=== PATIENT | female | born 1995 | race Caucasian/White ===

== ENCOUNTER 2017-01-31 06:31 | Emergency (ER) | payer BC ==
[~2017-01-31] VITALS: Ht 172.7 cm; Wt 94.7 kg
[~2017-01-31 06:31] MED LIST: DESO1TAB33 PO
[2017-01-31 06:35] VITALS: Ht 172.7 cm; Wt 94.7 kg
[2017-01-31] MEDS ORDERED: KETOROLAC TROMETHAMINE 60 MG/2 ML VIAL IM STA (06:58)
[2017-01-31] MEDS ORDERED: PROCHLORPERAZINE 5 MG/ML 2 ML VIAL IM ONE (07:00)
[2017-01-31] MEDS ORDERED: DiphenhydrAMINE HCL 50 MG/ML VIAL IV STA (07:03)
[2017-01-31] MEDS ORDERED: KETOROLAC TROMETHAMINE 30 MG/ML VIAL IV STA (07:03)
[2017-01-31] MEDS ORDERED: ONDANSETRON 8 MG/54 ML D5W IV STA (07:03)
[2017-01-31] MEDS ORDERED: PROCHLORPERAZINE 5 MG/ML 2 ML VIAL IV STA (07:03)
[2017-01-31] MEDS ORDERED: SODIUM CHLORIDE 0.9% 500ML 500 ML IV STA (07:08)
--- NOTE | 2017-01-31 07:52 | EMERGENCY ROOM VISIT NOTE ---
History Report prepared by [place]: America Hooper Under the Supervision of: Dr. Elias Hartley D.O. First contact with patient: 06:57 Chief Complaint: HEADACHE Stated Complaint: MIGRAINE,NAUSEA History of Present Illness The patient is a 21 year old female who presents to the Emergency Room with complaints of a constant headache beginning last night. Her pain is located in her temples bilaterally and in the back of her head. She is also experiencing nausea, vomiting, and photophobia. She rates her pain as an 8/10 in severity. The patient has a history of migraines and states that this feels similar to her typical headaches. She has been unable to keep her migraine medications down today due to her vomiting. The patient denies recent illness or fevers. Source of History: patient Onset: last night Position: head Symptom Intensity: 8/10 Timing: constant Modifying Factors (Worsening): other (light) Associated Symptoms: + nausea, + vomiting, No fevers Review of Systems See HPI for pertinent positives & negatives. A total of 10 systems reviewed and were otherwise negative. Past Medical & Surgical Medical Problems: (1) No Known Active Medical Problems Family History Diabetes mellitus FH: heart disease FHx: lung disease Hypertension Social History Smoking Status: Never Smoker Smokeless Tobacco Use: No Alcohol Use: none Housing Status: lives with family Occupation Status: employed Current/Historical Medications Scheduled Desogestrel-Ethinyl Estradiol (Azurette), 1 TAB PO DAILY Allergies Coded Allergies: No Known Allergies (Unverified , 01/31/17) Physical Exam Vital Signs Date Time Temp Pulse Resp B/P (MAP) Pulse Ox O2 Delivery O2 Flow Rate FiO2 01/31/17 06:35 81 20 128/85 99 Physical Exam CONSTITUTIONAL/VITAL SIGNS: Reviewed / noted above. GENERAL: Non-toxic in appearance. INTEGUMENTARY: Warm, dry, and [place]. HEAD: Normocephalic. EYES: without scleral icterus or trauma. ENT/OROPHARYNX: clear and moist. LYMPHADENOPATHY/NECK: Is supple without lymphadenopathy or meningismus. RESPIRATORY: Lungs clear and equal. CARDIOVASCULAR: Regular rate and rhythm. GI/ABDOMEN: Soft and nontender. No organomegaly or pulsatile mass. No rebound or guarding. Normal bowel sounds. EXTREMITIES: Warm and well perfused. BACK: No CVA tenderness. NEUROLOGICAL: Intact without focal deficits. PSYCHIATRIC: normal affect. MUSCULOSKELETAL: Normally developed with good muscle tone. Medical Decision & Procedures Medications Administered Medications (Trade) Dose Ordered Sig/Shiv Route Start Time Stop Time Status Last Admin Dose Admin Ketorolac Tromethamine (Toradol Inj) 30 mg NOW STAT IV 01/31/17 07:03 01/31/17 07:04 DC 01/31/17 07:19 30 MG Ondansetron HCl (Zofran 8mg Iv) 8 mg NOW STAT IV 01/31/17 07:03 01/31/17 07:04 DC 01/31/17 07:44 8 MG Prochlorperazine Edisylate (Compazine Inj) 10 mg NOW STAT IV 01/31/17 07:03 01/31/17 07:04 DC 01/31/17 07:23 10 MG Diphenhydramine HCl (Benadryl Inj) 25 mg NOW STAT IV 01/31/17 07:03 01/31/17 07:04 DC 01/31/17 07:21 25 MG Sodium Chloride 500 ml @ 999 mls/hr Q31M STAT IV 01/31/17 07:08 01/31/17 07:38 DC 01/31/17 07:19 999 MLS/HR ED Course 0657: Previous medical records were reviewed. The patient was evaluated in room B10. A complete history and physical examination was performed. 0658: Toradol 60 mg IM 0700: Compazine 10 mg IM 0703: Benadryl 25 mg IV, Compazine 10 mg IV, Zofran 8 mg IV, Toradol 30 mg IV 0708: NSS 500 ml @ 999 mls/hr IV 0730: I reassessed the patient at this time. She is feeling better and resting comfortably. I discussed the results and treatment plan with the patient. I answered all pertaining questions that she had. She expressed understanding and verbalized agreement. The patient will be discharged home. Medical Decision Differential includes: Acute intracranial bleed, trauma, meningitis, encephalitis, increased intracranial pressure, mass or mass effect, facial or dental infection, temporal arteritis, CVA, TIA, acute hypertensive emergency, sinusitis, and carbon monoxide exposure. This is a 21-year-old female who presents to the ED with a chief complaint of a migraine headache. She has associated nausea and vomiting. The patient denies any fevers, recent illness or trauma. She has no other complaints. No focal deficits. Her headache is bitemporal and posterior. She states this is similar to previous headaches that she has had. She does have a chronic history of headaches but reports that about 4-5 times year she has nausea and vomiting associated with her symptoms and cannot take her medication. The patient's exam was unremarkable. She has normal vital signs. She was treated with IV Benadryl, IV Toradol, IV Compazine, normal saline 500 mL IV and IV Zofran. She is felt to be stable for discharge and outpatient follow-up. Medication Reconcilliation Current Medication List: was personally reviewed by me Blood Pressure Screening Patient's blood pressure: Normal blood pressure Impression Primary Impression: Headache Additional Impression: Vomiting Scribe Attestation The scribe's documentation has been prepared under my direction and personally reviewed by me in its entirety. I confirm that the note above accurately reflects all work, treatment, procedures, and medical decision making performed by me. Departure Information Dispostion Home / Self-Care Referrals No Doctor, Assigned (PCP) Patient Instructions My [facility] Additional Instructions Follow-up with your doctor for further care and evaluation in 1-2 days if symptoms persist. Return to the emergency department for worsening or new symptoms or any concerns. You have been examined and treated today on an emergency basis only. This is not a substitute for, or an effort to provide, complete comprehensive medical care. It is impossible to recognize and treat all injuries or illnesses in a single emergency department visit. It is therefore important that you follow up closely with your doctor. Call as soon as possible for an appointment. Problem Qualifiers
[2017-01-31 08:11] VITALS: BP 117/61; PULSE 74; O2SAT 99
== END 2017-01-31 08:11 | disposition home or self-care (01) ==
LOC: C.EDB 06:32
DX: R51 Headache (principal); R11.2 Nausea with vomiting, unspecified; H53.149 Visual discomfort, unspecified; Z79.3 Long term (current) use of hormonal contraceptives; Z82.49 Family history of ischemic heart disease and other diseases of the circulatory system; Z83.3 Family history of diabetes mellitus; Z83.6 Family history of other diseases of the respiratory system